=== PATIENT | male | born 1965 | race Caucasian/White ===

== ENCOUNTER 2024-10-22 15:09 | Emergency (ER) | payer SELFPAY ==
--- OUTSIDE RECORDS SUMMARY | 2024-10-22 15:11 | XMS_ITS | Continuity of Care Document ---
Author Organization [facility] Address [address] [address] [place] [address] Phone Care Team Providers Care Vessel Scrapper Helper Name Role Phone Loyd Ac MD, Anatoliy Unavailable Unavailabl e Advance Directives Directive Yes / No Effective Date File Name No Information Encounters Encounter Description Practice Location Reason(s) For Visit Diagnoses Date Provider Providers Copied on Encounter [facility], [address] [address], [place], [place], [id number], [place] tel:[phone] [facility] No Information Loyd Cope. [address] [facility] [address], [place], [place], [id number], [place]. tel:[phone] Family History Family Member Type Diagnosis Age At Onset No Information Payers Payer name Insurance type Covered green party ID Authoriza tion(s) No Information Social History Type Description Quantity Date Captured Comments Sex Male Smoking Status No Information Chief Complaint And Reason For Visit No Information Reason For Referral Reason For Referral No Information Plan Of Treatment Date Type Action Status Appointment Jose Lopez BOOKED History Of Present Illness Encounter Date Complaint History Of Prese nt Illness No Information Functional Status Date Functional Assessmen t No Information Instructions Date Instruction Additional Infor mation No Information Assessments Type Assessment Date No Information Patient Care Teams Name Effective Dates (start - stop) Status Members No Information
--- OUTSIDE RECORDS SUMMARY | 2024-10-22 15:11 | XMS_ITS | Clinical Summary ---
Author Organization [facility] Address [place], [place] [address] Care Team Providers Care Manager Rn Case Name Role Phone Haider Sadler MD Unavailable [phone] Pcp, No Primary Care Provider Unavailabl e Allergies Active Allergy Reactions Criticality Noted Date Comments Codeine 01/02/2011 Medications No known medications Active Problems Problem Noted Date Diagnosed Date Primary osteoarthritis of both hips 09/27/2019 Overview (09/27/2019): Bilateral TERENCE's scheduled for 10/10/19 Routine adult health maintenance 09/05/2015 Overview (09/05/2015): Colonoscopy 08/2015 normal repeat in 10 years LBBB (left bundle branch block) 09/03/2011 Overview (09/19/2011): Seen 09/03/11 on monitor during surgery Not seen on monitor from 11/[address] showed minimal calcium therefore the new LBBB is not likely due to CADz Pure hypercholesterolemia 01/02/2011 Immunizations Name Administration Dates Next Due Td (Age >=7 Years) 09/03/2020,04/11/1997 Tdap 10/12/2008 Tuberculin (PPD) 07/22/2011 Zoster (Shingrix-RZV, recombinant) 01/15/2021, Family History Medical History Relation Name Comments Arthritis Brother 1 both hips repla thien before 50 Cancer Brother 1 throat CA Diabetes Brother 1 Cancer Brother 2 older brother h ad melanoma Hypertension Father b 1928 [facility] Maternal Grandfather d 100 y o [facility] Mother b 192 Cancer Paternal Aunt lymphoma Relation Name Status Comments Brother 1 Brother 2 Father Maternal Grandfather Mother Paternal Aunt Social History Tobacco Use Types Packs/Day Years Used Date Smoking Tobacco: Never Smokeless Tobacco: Never Tobacco Cessation:Counseling Given: Yes Alcohol Use Standard Drinks/Week Comments Yes 5.8 (1 standard drink = 0.6 oz p ure alcohol) PHQ-2 Answer Date Recorded PHQ-2 TOTAL SCORE 0 09/03/2020 Social Connections Answer Date Recorded Frequency of Communication with Friends and Fami ly Not on file 09/21/2021 Financial Resource Strain Answer Date R ecorded Difficulty of Paying Living Expenses Not on file 09/21/2021 Difficulty of Paying Living Expenses Not on file 09/21/2021 Sex and Gender Information Value Date Recorded Sex Assigned at Male 09/02/2020 8:41 AM UROLOGIST Legal Sex Male 5:27 AM UROLOGIST Gender Identity Male 09/02/2020 8:41 AM UROLOGIST Sexual Orientation Straight 09/02/2020 8: 41 AM UROLOGIST 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 Not on file Not on file Not on file Obstetrics History Last Filed Vital Signs Vital Sign Reading Time Taken Comments Blood Pressure 135/93 01/10/2021 9:54 AM CDT SOLO E BP CUFF Pulse 72 01/10/2021 9:52 AM CDT Temperature 36.8 C (98.2 F) 09/27/2019 2:17 PM UROLOGIST Respiratory Rate 16 03/19/2015 10:30 AM CDT Oxygen Saturation 98% 09/03/2020 8:17 AM UROLOGIST Inhaled Oxygen Concentration - - Weight 96.2 kg (212 lb) 09/03/2020 8:17 AM UROLOGIST Height 181 cm (5' 11.26) 09/03/2020 8:17 AM UROLOGIST Body Mass Index 29.35 09/03/2020 8:17 AM UROLOGIST Plan of Treatment Health Maintenance Due Date Last Done Comments HIV for age 15-65 1979 Pneumococcal series for age 50+ (1 of 1 - PCV) 2014 BMI (ht and wt on same day) for age 18+ 09/03/2021 09/03/2020, 09/27/2019, 07/18/2019 Depression screening for age 12+ 09/03/2021 09/03/20 20, 09/27/2019 COVID-19 vaccine series ( season) 2024 12/29/2020, 12/08/2020 Influenza for age 50-64 05/22/2024 Lipids for age 45-75 09/03/2025 09/03/2020, 08/31/2015, 08/03/2013, Additional history exists Colonoscopy through age 75 09/05/2025 09/05/2015, Tetanus booster 09/03/2030 09/03/2020, 09/22, 04/11/1997 RSV vaccine for adults or (1 - 1-dose 75+ series) 2039 Tdap Completed 10/12/2008 Hepatitis C screening for ag e 18-79 Completed 08/31/2015 Zoster (shingles) series for age 50+ Completed 01/15/2021, 09/03/2020 Procedures Procedure Name Priority Date/Time Associated Diagnosis Comments LIPID PANEL Routine 09/03/2020 8:57 AM UROLOGIST Pure hypercholesterolemia ANTI HCV Routine 08/31/2015 12:09 PM UROLOGIST Need for hepatitis C screening test from Last 3 Months or Most Recently Relevant to Health Maintenance Results * (ABNORMAL) LIPID PANEL (09/03/2020 8:57 AM UROLOGIST) CHOLESTEROL,TOTAL 205(H) 100 - 199 mg/dL 09/03/2020 3:29 PM UROLOGIST [facility] TRIGLYCERIDES 175(H) <150 mg/dL 09/03/2020 3:29 PM UROLOGIST [facility] HDL CHOLESTEROL 39(L) >40 mg/dL 0 3:29 PM UROLOGIST [facility] NON-HDL CHOLESTEROL 166(H) <145 mg/dl 09/03/2020 3:29 PM UROLOGIST [facility] CHOL/HDL RATIO 5.26(H) <4.50 09/03/2020 3:29 PM UROLOGIST [facility] LDL CHOLESTEROL 131(H) <=130 mg/dL 09/03/2020 3:29 PM UROLOGIST [facility] PROVIDER ORDERED STATUS RANDOM 09/03/2020 3:29 PM UROLOGIST [facility] Blood BLOOD SPECIMEN / Unknown Venipuncture / Unknown 09/03/2020 8:57 AM UROLOGIST 09/03/2020 9:00 AM UROLOGIST Kennedy Mcleod MD CHEMISTRY Final Re sult [facility] [address] [place] [address], [place] * ANTI HCV [15189.2] (08/31/2015 12:09 PM UROLOGIST) HEPATITIS C ANTIBODY Non-Reacti ve Non-Reacti ve 08/31/2015 5:06 PM UROLOGIST [facility] TRA [facility]ATORY Blood specimen (specimen) BLOOD SPECIMEN / Unknown Venipuncture / Unknown 08/31/2015 12:09 PM UROLOGIST 08/31/2015 12:09 PM UROLOGIST Narrative [facility] - 08/31/2015 5:06 PM UROLOGIST Antibodies to HCV not detected; does not exclude the possibility of exposure to HCV. us Kennedy Mcleod MD SEND OUTS Final Re sult Performing Organization Address City/[facility]/ZIP Co de Phone Number [facility] [address] [place] [address], [place] from Last 3 Months or Most Recently Relevant to Health Maintenance [place] [address] [place] [address] Care Teams Manager Rn Case Relationship Specialty Start Date End Date Pcp, No . PCP - General 09/27/24 Haider Sadler MD Cardiology Cardiovascular Disease 09/03/11
[2024-10-22 15:17] VITALS: BP 170/107; PULSE 84; RESP 16; TEMP 35.9; O2SAT 96; BMI 34.4
--- NOTE | 2024-10-22 15:25 | CRLHL7_ITS ---
For Patients: As a result of the Cures Act, medical imaging exams and procedure reports are released immediately into your electronic medical record. You may view this report before your referring provider. If you have questions, please contact your health care provider. Indication: CUTTING TREES AND HIT ANKLE WITH CHAINSAW Technique: Two views of the left ankle Comparison: None Findings/Impression: No acute, displaced fracture or malalignment. No ankle effusion. Large soft tissue laceration along the anterior aspect of the lower left tibia with some adjacent subcutaneous gas and some irregularity of the underlying superficial cortical bone, likely secondary to trauma from reported history of chainsaw injury, as seen on lateral view. No suspicious osseous lesions. Dictated by Yuan Fuentes MD @ 10/22/2024 4:14:13 PM (Electronically Signed)
--- NOTE | 2024-10-22 15:55 | ED.GENADULT ---
HPI - General Adult General Chief complaint: Extremity Pain/Injury, Lower Stated complaint: L ankle cut with chainsaw Time Seen by Provider: 10/22/24 15:19 Source: patient Mode of arrival: ambulatory Limitations: no limitations History of Present Illness HPI narrative: 59-year-old male presenting today after cutting the anterior leg with a chainsaw. This occurred approximately an hour and half ago. Denies other trauma. Has not been able to walk since. Related Data Home Medications ?Medication ?Instructions ?Recorded ?Confirmed No Known Home Medications 10/22/24 10/22/24 Allergies Allergy/AdvReac Type Severity Reaction Status Date / Time codeine Allergy Unknown Hives Verified 10/22/24 15:15 Review of Systems Status of ROS: Reports: 6 or more systems reviewed and unremarkable except as noted in History and below Exam Narrative: Exam Narrative: Well-nourished well-developed patient in no acute distress. Alert and oriented. Answers questions appropriately. Mood and affect are appropriate. Thoughts are goal oriented and rational. No tangential or magical thinking noted. Patient speaks in full sentences without needing to catch his breath. HEENT: Normocephalic atraumatic. Pupils are equally round reactive to light. Extraocular muscles are intact. Conjunctivae are moist without any icterus noted. Moist mucous membranes. Extremities: Bilateral lower extremities are without edema. Patient has a large laceration to the anterior left hatch. Laceration several inches in length lacerated through the skin, subcutaneous tissue, all visible tendons and reaches the bone. A small alvarado at the bone but the bone has not been penetrated. Bleeding is controlled. He has normal DP and PT pulses. Normal capillary refill. He cannot dorsiflex. Skin: Well perfused without any obvious rashes. Const: Vital Signs, click to edit/add: Vital Signs - 24 hr 10/22/24 15:17 Temperature 96.6 F L Pulse Rate [Pulse Oximeter] 84 Respiratory Rate 16 Blood Pressure [Ri ght Upper Arm] 170/107 H Pulse Oximetry 96 Oxygen Delivery Me thod Room Air Course Course ED Course: Discussed patient with our orthopedic team who who recommended patient be seen by a trauma surgeon. X-ray does not show penetrating wound through the bone. I discussed patient with [facility] who accepted the patient for transfer. Vital Signs Vital signs: Initial Vital Signs Temperature 96.6 F L 10/22/24 15:17 Temperature Source Temporal Artery Scan 10/22/24 15:17 Pulse Rate 84 10/22/24 15:17 Pulse Rhythm Regular 10/22/24 15:17 Respiratory Rate 16 10/22/24 15:17 Blood Pressure 170/107 H 10/22/24 15:17 Blood Pressure Mean 128 H 10/22/24 15:17 Blood Pressure Position Supine 10/22/24 15:17 Pulse Oximetry 96 10/22/24 15:17 Oxygen Delivery Method Room Air 10/22/24 15:17 Vital Signs Temperature 96.6 F L 10/22/24 15:17 Pulse Rate 84 10/22/24 15:17 Respiratory Rate 16 10/22/24 15:17 Blood Pressure 170/107 H 10/22/24 15:17 Pulse Oximetry 96 10/22/24 15:17 Oxygen Delivery Method Room Air 10/22/24 15:17 Temperature 96.6 F L 10/22/24 15:17 Pulse Rate 84 10/22/24 15:17 Respiratory Rate 16 10/22/24 15:17 Blood Pressure 170/107 H 10/22/24 15:17 Pulse Oximetry 96 10/22/24 15:17 Oxygen Delivery Method Room Air 10/22/24 15:17 Medical Decision Making MDM Narrative Medical decision making narrative: Traumatic laceration anterior hatch. Patient will be transferred to [facility] [place] private convenience. Pressure dressing applied to the anterior hatch. Discharge Plan Discharge Clinical Impression: Laceration, Extensor tendon disruption Patient Disposition: Xfer Other Dis[place] Location[place] [facility] [place] Condition: Unchanged Additional Instructions: Proceed directly to the emergency department at [facility] Prescriptions: No Action No Known Home Medications Stand Alone Forms: [employer] Info Instructions
--- OUTSIDE RECORDS SUMMARY | 2024-10-22 16:02 | XMS_ITS | Clinical Summary ---
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 Not on file Not on file Obstetrics History Last Filed Vital Signs Vital Sign Reading Time Taken Comments Blood Pressure 135/93 01/10/2021 9:54 AM CDT SOLO E BP CUFF Pulse 72 01/10/2021 9:52 AM CDT Temperature 36.8 C (98.2 F) 09/27/2019 2:17 PM COTTON FEEDER Respiratory Rate 16 03/19/2015 10:30 AM CDT Oxygen Saturation 98% 09/03/2020 8:17 AM COTTON FEEDER Inhaled Oxygen Concentration - - Weight 96.2 kg (212 lb) 09/03/2020 8:17 AM COTTON FEEDER Height 181 cm (5' 11.26) 09/03/2020 8:17 AM COTTON FEEDER Body Mass Index 29.35 09/03/2020 8:17 AM COTTON FEEDER Plan of Treatment Health Maintenance Due Date [...] Comments LIPID PANEL Routine 09/03/2020 8:57 AM COTTON FEEDER Pure hypercholesterolemia ANTI HCV Routine 08/31/2015 12:09 PM COTTON FEEDER Need for hepatitis C screening test from Last 3 Months or Most Recently Relevant to Health Maintenance Results * (ABNORMAL) LIPID PANEL (09/03/2020 8:57 AM COTTON FEEDER) CHOLESTEROL,TOTAL 205(H) 100 - 199 mg/dL 09/03/2020 3:29 PM COTTON FEEDER [facility] [employer] [facility] TRAL LABORATORY TRIGLYCERIDES 175(H) <150 mg/dL 09/03/2020 3:29 PM COTTON FEEDER [facility] [employer] [facility] HDL CHOLESTEROL 39(L) >40 mg/dL 0 3:29 PM COTTON FEEDER [facility] TR[facility] NON-HDL CHOLESTEROL 166(H) <145 mg/dl 09/03/2020 3:29 PM COTTON FEEDER [facility] CHOL/HDL RATIO 5.26(H) <4.50 09/03/2020 3:29 PM COTTON FEEDER [facility] TR[facility] LDL CHOLESTEROL 131(H) <=130 mg/dL 09/03/2020 3:29 PM COTTON FEEDER [facility] TRAL LABORATORY PROVIDER ORDERED STATUS RANDOM 09/03/2020 3:29 PM COTTON FEEDER [facility] TR[facility] Blood BLOOD SPECIMEN / Unknown Venipuncture / Unknown 09/03/2020 8:57 AM COTTON FEEDER 09/03/2020 9:00 AM COTTON FEEDER Kennedy Mcleod MD CHEMISTRY Final Re sult [facility] [address] [place] [address], [place] * ANTI HCV [55593.2] (08/31/2015 12:09 PM COTTON FEEDER) HEPATITIS C ANTIBODY Non-Reacti ve Non-Reacti ve 08/31/2015 5:06 PM COTTON FEEDER [facility] TRA LABORATORY Blood specimen (specimen) BLOOD SPECIMEN / Unknown Venipuncture / Unknown 08/31/2015 12:09 PM COTTON FEEDER 08/31/2015 12:09 PM COTTON FEEDER Narrative [facility] - 08/31/2015 5:06 PM COTTON FEEDER Antibodies to HCV not detected; does not exclude the possibility of exposure to HCV. us Kennedy Mcleod MD SEND OUTS Final Re sult Performing Organization Address City/[facility]/ZIP Co de Phone Number [facility] [address] [place] [address], [place] from Last 3 Months or Most Recently Relevant to Health Maintenance Insurance [place] [address] Care Teams Opera Singer Relationship Specialty Start Date End Date Pcp, No . PCP - General 09/27/24 Haider Sadler MD Cardiology Cardiovascular Disease 09/03/11
--- OUTSIDE RECORDS SUMMARY | 2024-10-22 16:02 | XMS_ITS | Continuity of Care Document ---
Author Organization [facility] Address [address] [address] [place] [address] Phone Care Team Providers Care Kiln Operator Helper Name Role Phone Loyd Ac MD, Anatoliy Unavailable Unavailabl e Advance Directives Directive Yes / No Effective Date File Name No Information Encounters Encounter Description Practice Location Reason(s) For Visit Diagnoses Date Provider Providers Copied on Encounter [facility], [address] [address], [place], [place], [id number], [place] tel:[phone] [facility] No Information Loyd Cope. [address] [facility] [address], [place], [place], [id number], [place]. tel:[phone] Family History Family Member Type Diagnosis Age At Onset No Information Payers Payer name Insurance type Covered republican ID Authoriza tion(s) No Information Social History [...]
== END 2024-10-22 16:17 | disposition other institution (70) ==
LOC: ED 16:00
PROVIDERS: Emergency Provider Family Medicine; PCP Family Medicine
DX: S86.222A Laceration of muscle(s) and tendon(s) of anterior muscle group at lower leg level, left leg, initial encounter (principal); W29.3XXA Contact with powered garden and outdoor hand tools and machinery, initial encounter
CPT/HCPCS: 73600; 99284; 99285